=== PATIENT | male | born 1945 | race Caucasian/White ===

== ENCOUNTER 2021-12-02 08:52 | Inpatient (IN) | payer MEDICARE, MEDICAID ==
[2021-12-02] VITALS (19 sets, daily range): BP systolic 33–125; BP diastolic 18–80
[~2021-12-02] VITALS: Ht 162.6 cm; Wt 87.7 kg
[2021-12-02] MEDS ORDERED: CLOP75TA33 PO (10:49)
[2021-12-02] MEDS ORDERED: OMEP40CA20 PO (10:57)
[2021-12-02] MEDS ORDERED: ALEN70TA79 PO (10:57)
[2021-12-02] MEDS ORDERED: CARB-32 PO (10:57)
[2021-12-02] MEDS ORDERED: FINA5TAB11 PO (10:57)
[2021-12-02] MEDS ORDERED: ATOR20TA65 PO (10:57)
[2021-12-02] MEDS ORDERED: ASPI-1160 PO (10:57)
[2021-12-02] MEDS ORDERED: METF-414 PO (10:57)
[2021-12-02] MEDS ORDERED: IBUP-2029 PO (10:57)
[2021-12-02] MEDS ORDERED: TAMS-11 PO (10:57)
[2021-12-02] MEDS ORDERED: LIDOCAINE HCL/PF 2% 20MG/ML 5 ML/VIAL ONE (11:21)
[2021-12-02] MEDS ORDERED: HEPARIN 1000 UNITS/ML 10ML ONE (11:21)
[2021-12-02] MEDS ORDERED: FENTANYL CITRATE/PF 50MCG/ML 2ML VIAL ONE (11:21)
[2021-12-02] MEDS ORDERED: IODIXANOL 320MG/ML 100 ML BOTTLE IV ONE ×2 (11:21→11:22)
[2021-12-02] MEDS ORDERED: MIDAZOLAM HCL 2 MG/2 ML VIAL ONE (11:21)
[2021-12-02] MEDS ORDERED: IODIXANOL 320 MG/ML 150ML BOTTLE IV ONE (12:01)
[2021-12-02] MEDS ORDERED: CLOPIDOGREL 75MG TABLET ONE (12:12)
[2021-12-02] MEDS ORDERED: ASPIRIN 325MG TABLET ONE (12:12)
[2021-12-02] MEDS ORDERED: ZOLPIDEM TARTRATE 5MG TABLET PO PRN (12:30)
[2021-12-02] MEDS ORDERED: ACETAMINOPHEN 325MG TABLET PO PRN (12:30)
[2021-12-02] MEDS ORDERED: NICARDIPINE 100MCG/ML 10ML VIAL (CATH LAB) IV ONE (14:00)
[2021-12-02] MEDS ORDERED: NITROGLYCERIN 50MCG/ML 10ML VIAL (CATH LAB) IV ONE (14:00)
[2021-12-02] MEDS: TAMSULOSIN HCL 0.4MG SR CAPSULE PO SCH (16:38)
[2021-12-02] MEDS: OMEPRAZOLE 20MG CAPSULE EXTENDED RELEASE PO SCH (16:38)
[2021-12-02] MEDS: AMLODIPINE 5MG TABLET PO SCH (20:32)
[2021-12-02] MEDS ORDERED: ATORVASTATIN CALCIUM 40MG TABLET PO SCH (21:00)
[2021-12-03] VITALS (12 sets, daily range): BP systolic 94–122; BP diastolic 43–75
[2021-12-03 07:08] LABS: BASOPHILS % 0.6 % (0.0-2.0); CHLORIDE 106 mEq/L (98-107); EOSINOPHILS % 4.7 % (0.0-5.0); HEMATOCRIT. 48.9 % (42.0-52.0); HEMOGLOBIN. 16.3 g/dL (14.0-18.0); LYMPHOCYTES % 19.7 % (20.0-50.0); MEAN CORPUSCULAR HEMOGLOBIN 31.2 pg (28.0-32.0); MEAN CORPUSCULAR VOLUME 93.5 fL (80.0-94.0); MEAN PLATELET VOLUME 7.5 fl (7.4-10.4); MONOCYTES % 11.6 % (2.0-8.0); NEUTROPHILS % 63.4 % (40.0-76.0); PLATELET 212 x1000/uL (130-400); RED BLOOD CELL COUNT 5.23 mill/uL (4.7-6.1); RED CELL DISTRIBUTION WIDTH 14.3 % (11.6-14.6)
[2021-12-03] MEDS: OMEPRAZOLE 20MG CAPSULE EXTENDED RELEASE PO SCH (08:49)
[2021-12-03] MEDS: AMLODIPINE 5MG TABLET PO SCH (08:50)
[2021-12-03] MEDS: TAMSULOSIN HCL 0.4MG SR CAPSULE PO SCH (08:52)
[2021-12-03] MEDS ORDERED: ASPIRIN 325MG EC TABLET PO SCH (09:00)
[2021-12-03] MEDS ORDERED: CLOPIDOGREL 75MG TABLET PO SCH (09:00)
== END 2021-12-03 16:00 | disposition home or self-care (01) | DRG 247 ==
LOC: CCL 08:52 → 5EST 13:22
PROVIDERS: ADMIT Specialist; ATTEND Specialist
PROC: 027034Z Dilation of Coronary Artery, One Artery with Drug-eluting Intraluminal Device, Percutaneous Approach (ICD-10-PCS; principal; 2021-12-02)
PROC: 4A023N7 Measurement of Cardiac Sampling and Pressure, Left Heart, Percutaneous Approach (ICD-10-PCS; 2021-12-02)
PROC: B2111ZZ Fluoroscopy of Multiple Coronary Arteries using Low Osmolar Contrast (ICD-10-PCS; 2021-12-02)
DX: I25.10 Atherosclerotic heart disease of native coronary artery without angina pectoris (principal); E11.9 Type 2 diabetes mellitus without complications; E78.5 Hyperlipidemia, unspecified; Z20.822 Contact with and (suspected) exposure to COVID-19; I10 Essential (primary) hypertension; I45.10 Unspecified right bundle-branch block; N40.0 Benign prostatic hyperplasia without lower urinary tract symptoms; F17.210 Nicotine dependence, cigarettes, uncomplicated; Z79.84 Long term (current) use of oral hypoglycemic drugs
CPT/HCPCS: 36415; 80048; 85025; 87426; 92928; 93454; C1769; C1874; C1887; C1893; C9803; J1644; J2250; J3010; J3490; Q9967